=== PATIENT | female | born 1940 | race Caucasian/White ===

== ENCOUNTER 2022-12-21 09:56 | Emergency (ER) | payer MEDICARE, SELFPAY ==
--- NOTE | ~2022-12-21 | US_ITS ---
EXAMINATION: US ABDOMEN LIMITED CLINICAL INFORMATION: Abdominal pain and nausea. COMPARISON: None available. TECHNIQUE: Real-time imaging of the right upper quadrant abdominal viscera. FINDINGS: PANCREAS: Normal. LIVER: Slight increased echotexture but no focal mass. There is no intrahepatic biliary dilatation. GALLBLADDER: Multiple small mobile gallstones observed within the gallbladder but no gallbladder wall thickening or pericholecystic fluid. COMMON BILE DUCT: Normal in caliber measuring 0.6 cm in diameter. RIGHT KIDNEY: Normal. No hydronephrosis. No renal calculi or focal parenchymal lesions. The kidney measures 9.7 cm in maximum dimension. FREE FLUID: None. US/US abdomen limited IMPRESSION: Cholecystolithiasis with no biliary dilatation.
[2022-12-21 10:16] VITALS: BP 164/70; BP 170/90; PULSE 81; PULSE 83; RESP 16; TEMP 36.9; O2SAT 96; BMI 19.4
--- NOTE | 2022-12-21 10:23 | ED.GENADULT ---
HPI - General Adult General Chief complaint: Back Pain/Injury Stated complaint: N/V/D,LOW BACK PAIN,?UTI S/P SURG 3 WKS AGO Time Seen by Provider: 12/21/22 10:03 Source: patient, RN notes reviewed and old records reviewed Mode of arrival: ambulatory History of Present Illness HPI narrative: 82-year-old female with a past medical history L1 compression fracture s/p kyphoplasty 3 weeks ago at [facility], known L2 compression fracture (scheduled for additional kyphoplasty 12/26), presenting to the ED complaining of continued low back pain, nausea, vomiting, and diarrhea s/p taking Oxycodone for pain it yesterday. Patient states was scheduled for routine follow-up in the office yesterday, was complaining of continued pain thus prescribed Oxycodone, also had MRI on Monday due to pain which showed the new L2 compression fracture. Called office today and was instructed to come to ED for further evaluation. Patient/ daughter concern for dehydration. Denies fever, chills, abdominal pain, dysuria / hematuria, urinary incontinence/retention Onset (ago): day(s) Related Data Home Medications Medication Instructions Recorded Confirmed albuterol sulfate 90 mcg/actuation 2 puff inhalation QID PRN wheezing 12/21/22 12/21/22 aerosol inhaler (Ventolin HFA) atorvastatin 20 mg tablet 20 mg PO DAILY 12/21/22 12/21/22 fluticasone fur. 100 mcg-umeclid 1 ea inhalation DAILY 12/21/22 12/21/22 62.5 mcg-vilant 25 mcg inhalat.powder (Trelegy Ellipta) gabapentin 300 mg capsule 300 mg PO DAILY 12/21/22 12/21/22 losartan 100 mg tablet 100 mg PO DAILY 12/21/22 12/21/22 metoprolol succinate 100 mg 150 mg PO DAILY 12/21/22 12/21/22 tablet,extended release 24 hr multivitamin 1 tab PO DAILY 12/21/22 12/21/22 naproxen 500 mg tablet 500 mg PO BID 12/21/22 12/21/22 omeprazole 40 mg capsule,delayed 40 mg PO DAILY 12/21/22 12/21/22 release oxycodone 5 mg tablet 5 mg PO QID PRN Severe Pain (Scale 08/02/23 08/02/23 Score 7-10) polyethylene glycol 3350 17 17 g PO DAILY 12/21/22 12/21/22 gram/dose oral powder tizanidine 4 mg tablet 4 mg PO TID 12/21/22 12/21/22 Allergies Allergy/AdvReac Type Severity Reaction Status Date / Time No Known Allergies Allergy Verified 12/21/22 10:35 Review of Systems Review of Systems: Constitutional: No Fever, No Chills, No Fatigue, No Malaise ENT/Mouth: No Ear Pain, No sore throat, No Rhinorrhea, No Swallowing Difficulty Eyes: No Eye Pain, No Swelling, No Redness Cardiovascular: No Chest Pain, No SOB, No Edema, No Palpitations Respiratory: No Cough, No Sputum, No Dyspnea Gastrointestinal: + Nausea, +Vomiting, + Diarrhea, No Constipation, No Abdominal pain Genitourinary: No Dysuria, No Urinary Frequency, No Hematuria, No Urinary Incontinence/retention, No Flank Pain Musculoskeletal: + joint pain, No Myalgias, No Joint Swelling Skin: No Skin Lesions, No rash Neuro: No Weakness, No Numbness, No Paresthesias, No Headache Yes all other systems are reviewed and are negative Constitutional: Constitutional: Reports as per HPI Neurologic: Denies Sensory deficit (Neuro) [facility] Past Medical History Attestation statement: The following information was validated with the patient. Source: old records reviewed Social History Social History Alcohol intake: current Alcohol intake frequency: holidays/special occasions only Smoked in Last 30 Days: No Use of substances other than those prescribed or required for medical reasons: No Advance Directives: No Physical Exam ED Vital Signs: Vital Signs - 24 hr 12/21/22 10:16 12/21/22 15:19 12/21/22 15:41 Temperature 98.5 F Pulse Rate 81 81 96 Respiratory Rate 16 18 Blood Pressure 164/70 H 164/70 H 165/78 H Pulse Oximetry 96 96 93 Oxygen Delivery Method Room Air Room Air BMI result Body Mass Index 19.4 Const General: cooperative, healthy appearing and no acute distress Orientation/consciousness: patient oriented x3 Limitations: no limitations HENMT Head: Yes normal to inspection and Yes atraumatic Ears: hearing grossly normal bilaterally General nose exam: Normal external nose present Face and sinus: Yes normal facial exam Eyes General: appearance normal, both eyes and all related structures EOM: EOMs intact bilaterally Neck Neck: Yes normal visual inspection and Yes no meningeal signs Resp Effort & Inspection: normal respiratory effort and no respiratory distress Auscultation: clear to auscultation bilaterally Cardio Rate: regular rate Heart sounds: S1 normal heart sound present and S2 normal heart sound present GI Inspection: Yes normal to inspection Palpation (GI): Soft to palpation, nontender, no guarding and not rigid General: Yes no CVA tenderness Back/Spine/Pelvis Other: No midline cervical/thoracic/lumbar spinous tenderness/step-off or deformity. back pain not reproducible on exam. No appreciable surgical scar/ erythema or ecchymosis. Back: no CVA tenderness Skin Rashes: no rashes Wounds: no wounds Neuro Other: Strength intact throughout. No saddle anesthesia. Sensation intact to light touch. Neurovascular intact distally General: patient oriented x3, tone normal, no meningeal signs and no focal motor deficits Gait exam (Neuro): Normal gait present Motor exam (neuro): 5/5 motor strength present throughout Sensory Exam: No Sensory deficit (Neuro) Extrem General: Yes normal to inspection and Yes no pedal edema Course Course Course Narrative: -1125-- received records from [facility] [place] which confirm patient's kyphoplasty of L2 on 12/02. Patient had MRI of the lumbar spine on 12/19 which confirmed a new acute fracture of the L1 vertebral body. If has been managing with Tylenol/ naproxen at home without relief. Is scheduled to undergo kyphoplasty of L1 new fracture. Was prescribed oxycodone 5 mg, 20 tablets yesterday. -1205--- no leukocytosis. + Transaminitis with AST 124, ALT 160, alk-phos 981 ( no available priors to compare) > abdomen soft/ nontender, will obtain abdomen ultrasound, hepatitis panel/acetaminophen levels - lipase and acetaminophen negative, hepatitis panel pending US abdomen limited IMPRESSION: Cholecystolithiasis with no biliary dilatation. >1438-- on re-evaluation patient lying comfortably in stretcher, states pain is okay when still, however becomes severe with any movement. States cannot ambulate without assistance, unsafe discharge. Agreeable to PT/case management. does have surgery scheduled for Monday, likely will need rehab until procedure. Physician observation initiated - physical therapy evaluated patient and recommended acute rehab. -1630-- ED care transferred to [facility] pending Case Management placement Medications Administered Discontinued Medications Generic Name Dose Route Start Last Admin Trade Name Emperatriz PRN Reason Stop Dose Admin Sodium Chloride 1,000 mls @ 999 mls/hr 12/21/22 12:15 12/21/22 13:15 Ns IV 12/21/22 13:15 999 mls/hr .Q1H1M AP Administration Morphine Sulfate 15 mg 12/21/22 10:35 12/21/22 11:03 Morphine Sulfate Immed Release 15 Mg Tablet PO 12/21/22 10:36 15 mg ONCE ONE Administration Ondansetron HCl 4 mg 12/21/22 10:35 12/21/22 11:03 Ondansetron Odt 4 Mg Tab.Rapdis TRANSLINGU 12/21/22 10:36 4 mg ONCE ONE Administration Tramadol HCl 50 mg 12/21/22 12:10 12/21/22 13:15 Tramadol Hcl 50 Mg Tablet PO 12/21/22 12:11 50 mg ONCE ONE Administration Medical Decision Making Medical Decision Making [facility] Narrative: 82-year-old female with a past medical history L1 compression fracture s/p kyphoplasty 3 weeks ago at [facility], known L2 compression fracture (scheduled for additional kyphoplasty 12/26), presenting to the ED complaining of continued low back pain, nausea, vomiting, and diarrhea s/p taking Oxycodone for pain it yesterday. On exam vital signs stable, NAD, nontoxic appearing, no midline spinous tenderness or red flag symptoms, back pain not reproducible, no saddle anesthesia. Concern for adverse medication reaction vs continued pain due to previous kyphoplasty/ known L2 compression fracture. Low suspicion for new fracture, cauda equina/cord compression, or epidural abscess. Unlikely dissection. Rule out UTI. Plan: Labs, UA, request records from outpatient facility, pain control Please refer to course for remaining clinical decision making, interpretation of labs/imaging results, and discussions with consultants and/or family members. Differential Diagnosis Differential Diagnoses: The differential diagnosis associated with the presentation includes As above Admission/Observation Consideration of admission/observation: Escalation of care including admission/observation considered Lab Data [facility] Lab Attestation statement: I reviewed the patient's lab results. 12/21/22 10:55 12/21/22 10:55 Labs: Lab Results 12/21/22 12/21/2223 Range/Units 10:55 10:55 11:19 WBC 8.6 (4.8-10.8) X10*3/uL RBC 3.52 L (4.20-5.50) X10*6/uL Hgb 11.4 L (12.0-16.0) g/dl Hct 34.8 L (37.0-47.0) % MCV 98.9 H (80.0-98.0) fL MCH 32.4 (27.0-33.0) pg MCHC 32.8 (31.0-35.0) g/dl RDW 13.5 (11.0-16.0) % Plt Count 349 (160-400) X10*3/uL MPV 9.1 L (9.4-12.3) fL Immature Gran % (Auto) 0.5 H (0.0-0.4) % Neut % (Auto) 78.9 H (45-73) % Lymph % (Auto) 9.2 L (20-40) % [place]ancock % (Auto) 9.3 (2-11) % Eos % (Auto) 1.6 (0-4) % Baso % (Auto) 0.5 (0-2) % Lymph # (Auto) 0.8 L (1.2-4.9) X10*3/uL Hancock # (Auto) 0.8 (0.1-1.2) X10*3/uL Eos # (Auto) 0.1 (0.0-0.4) X10*3/uL Baso # (Auto) 0.0 (0.0-0.2) X10*3/uL Abs Immat Gran (auto) 0.04 H (0.00-0.03) X10*3/uL Absolute Neuts (auto) 6.8 (2.0-8.3) x10*3/uL Absolute Nucleated RBC 0.000 (0.0-0.012) X10*3/uL Nucleated RBC % (auto) 0.0 (0.0-0.2) /100WBC Sodium 135 (135-145) mmol/L Potassium 3.8 (3.3-5.1) mmol/L Chloride 101 (96-108) mmol/L Carbon Dioxide 23 (22-29) mmol/L Anion Gap 15 (12-20) BUN 5 L (9-16) mg/dL Creatinine 0.58 (0.5-1.4) mg/dL Estim Creat Clear Calc 51.3 Estimated GFR > 60 Random Glucose 103 (60-115) mg/dL Calcium 9.6 (8.4-10.2) mg/dL Magnesium 2.1 (1.6-2.6) mg/dL Total Bilirubin 0.9 (0.0-1.0) mg/dL Direct Bilirubin 0.5 (0.0-0.5) mg/dL AST 124 H (5-31) U/L ALT 160 H (0-31) U/L Alkaline Phosphatase 981 H (39-117) U/L Total Protein 7.2 (6.5-8.0) g/dL Albumin 3.7 (3.5-5.0) g/dL Lipase (8-78) U/L Urine Color Yellow Urine Appearance Clear Urine pH 7.0 (5.0-9.0) Ur Specific [place] 1.010 (1.005-1.025) Urine Protein Negative (Neg-Trace) mg/dL Urine Glucose (UA) Negative (Negative) mg/dL Urine Ketones Trace (Negative) mg/dL Urine Blood Negative (Negative) Urine Nitrite Negative (Negative) Ur Leukocyte Esterase Negative (Negative) Acetaminophen (<30) mcg/mL COVID-19 (ANTIONETTE) (Negative) COVID-19 Clin Com 12/21/22 12/21/22 12/21/22 Range/Units 12:44 12:44 15:19 WBC (4.8-10.8) X10*3/uL RBC (4.20-5.50) X10*6/uL Hgb (12.0-16.0) g/dl Hct (37.0-47.0) % MCV (80.0-98.0) fL MCH (27.0-33.0) pg MCHC (31.0-35.0) g/dl RDW (11.0-16.0) % Plt Count (160-400) X10*3/uL MPV (9.4-12.3) fL Immature Gran % (Auto) (0.0-0.4) % Neut % (Auto) (45-73) % Lymph % (Auto) (20-40) % Hancock % (Auto) (2-11) % Eos % (Auto) (0-4) % Baso % (Auto) (0-2) % Lymph # (Auto) (1.2-4.9) X10*3/uL [place] # (Auto) (0.1-1.2) X10*3/uL Eos # (Auto) (0.0-0.4) X10*3/uL Baso # (Auto) (0.0-0.2) X10*3/uL Abs Immat Gran (auto) (0.00-0.03) X10*3/uL Absolute Neuts (auto) (2.0-8.3) x10*3/uL Absolute Nucleated RBC (0.0-0.012) X10*3/uL Nucleated RBC % (auto) (0.0-0.2) /100WBC Sodium (135-145) mmol/L Potassium (3.3-5.1) mmol/L Chloride (96-108) mmol/L Carbon Dioxide (22-29) mmol/L Anion Gap (12-20) BUN (9-16) mg/dL Creatinine (0.5-1.4) mg/dL Estim Creat Clear Calc Estimated GFR Random Glucose (60-115) mg/dL Calcium (8.4-10.2) mg/dL Magnesium (1.6-2.6) mg/dL Total Bilirubin (0.0-1.0) mg/dL Direct Bilirubin (0.0-0.5) mg/dL AST (5-31) U/L ALT (0-31) U/L Alkaline Phosphatase (39-117) U/L Total Protein (6.5-8.0) g/dL Albumin (3.5-5.0) g/dL Lipase 13 (8-78) U/L Urine Color Urine Appearance Urine pH (5.0-9.0) Ur Specific [place] (1.005-1.025) Urine Protein (Neg-Trace) mg/dL Urine Glucose (UA) (Negative) mg/dL Urine Ketones (Negative) mg/dL Urine Blood (Negative) Urine Nitrite (Negative) Ur Leukocyte Esterase (Negative) Acetaminophen < 17 (<30) mcg/mL COVID-19 (ANTIONETTE) Negative (Negative) COVID-19 Clin Com See Note Radiology Impression Discussion of test interpretation with radiology: I have reviewed the radiologist's reading. Independent Historian Clinical information obtained from an independent historian. History obtained from or confirmed by: Other (daughter) External Record Review External record reviewed: Inpatient record, Office record, Outpatient record, Prior outpatient labs, Prior outpatient radiology, Primary care record and Outside ED record Tests considered The following testing was considered but not selected: repeat imaging although not needed at this time as MRI was obtained on Monday Prescription Management I considered prescription management with: Pain Medication Discharge Plan Discharge Clinical Impression: Compression fracture of L1 vertebra, Transaminitis, Cholelithiasis Patient Disposition: Still a Patient Prescriptions: No Action multivitamin Tablet 1 tab PO DAILY atorvastatin 20 mg tablet 20 mg PO DAILY tizanidine 4 mg tablet 4 mg PO TID metoprolol succinate 100 mg tablet extended release 24 hr 150 mg PO DAILY omeprazole 40 mg capsule,delayed release(DR/EC) 40 mg PO DAILY gabapentin 300 mg capsule 300 mg PO DAILY polyethylene glycol 3350 17 gram/dose Powder 17 g PO DAILY albuterol sulfate [Ventolin HFA] 90 mcg/actuation HFA aerosol inhaler 2 puff INHALATION QID PRN (Reason: wheezing) losartan 100 mg tablet 100 mg PO DAILY naproxen 500 mg tablet 500 mg PO BID oxycodone 5 mg tablet 5 mg PO QID PRN (Reason: Severe Pain (Scale Score 7-10)) Trelegy Ellipta 100-62.5-25 mcg blister with device 1 ea inhalation DAILY
[2022-12-21 10:58] LABS: MANUAL DIFF FLAG NO
[2022-12-21] MEDS: Ondansetron ODT 4 MG TAB.RAPDIS TRANSLINGU ×2 (11:03→18:22)
[2022-12-21] MEDS: Morphine Sulfate Immed Release 15 MG TABLET PO (11:03)
[2022-12-21 11:10] LABS: Basophils Percent Auto 0.5 % (0-2); Eosinophils Absolute Auto 0.1 X10*3/uL (0.0-0.4); Eosinophils Percent Auto 1.6 % (0-4); Hematocrit 34.8 % (37.0-47.0); Hemoglobin 11.4 g/dl (12.0-16.0); Imm Gran Abs Auto 0.04 X10*3/uL (0.00-0.03); Imm Gran Pct Auto 0.5 % (0.0-0.4); Lymphocytes Absolute Auto 0.8 X10*3/uL (1.2-4.9); Lymphocytes Percent Auto 9.2 % (20-40); Mean Corpuscular HGB Conc 32.8 g/dl (31.0-35.0); Mean Corpuscular Hemoglobin 32.4 pg (27.0-33.0); Mean Corpuscular Volume 98.9 fL (80.0-98.0); Mean Platelet Volume 9.1 fL (9.4-12.3); Monocytes Absolute Auto 0.8 X10*3/uL (0.1-1.2); Monocytes Percent Auto 9.3 % (2-11); Neutrophils Absolute Auto 6.8 x10*3/uL (2.0-8.3); Neutrophils Percent Auto 78.9 % (45-73); Platelet Count 349 X10*3/uL (160-400); Red Blood Count 3.52 X10*6/uL (4.20-5.50); Red Cell Distribution Width 13.5 % (11.0-16.0); White Blood Count 8.6 X10*3/uL (4.8-10.8)
[2022-12-21 11:20] LABS: Alanine Aminotransferase 160 U/L (0-31); Albumin Level 3.7 g/dL (3.5-5.0); Alkaline Phosphatase 981 U/L (39-117); Anion Gap 15 (12-20); Aspartate Amino Transferase 124 U/L (5-31); Bilirubin Direct 0.5 mg/dL (0.0-0.5); Bilirubin Total 0.9 mg/dL (0.0-1.0); Blood Urea Nitrogen 5 mg/dL (9-16); Calcium 9.6 mg/dL (8.4-10.2); Carbon Dioxide 23 mmol/L (22-29); Chloride 101 mmol/L (96-108); Creatinine Clr Calc Pharmacy 51.3; Estimated Glomerular Filt Rate > 60; Glucose Random 103 mg/dL (60-115); Magnesium 2.1 mg/dL (1.6-2.6); Potassium 3.8 mmol/L (3.3-5.1); Sodium 135 mmol/L (135-145); Total Protein 7.2 g/dL (6.5-8.0)
[2022-12-21 11:30] LABS: Appearance Urine Clear; Color Urine Yellow; Glucose Urine UA Negative (Negative); Leukocyte Esterase Urine Negative (Negative); Nitrite Urine Negative (Negative); Urine Blood Negative (Negative); Urine Ketones Trace mg/dL (Negative); Urine Protein Negative (Neg-Trace)
--- NOTE | 2022-12-21 12:16 | PHA.MEDREC ---
Pharmacy Consult ? Medication Reconciliation Pharmacy has completed the medication reconciliation. List from [facility]
[2022-12-21 13:05] LABS: Lipase 13 U/L (8-78)
[2022-12-21 13:09] LABS: Acetaminophen LAB < 17 mcg/mL (<30)
[2022-12-21] MEDS: 0.9 % Sodium Chloride 1,000 ML 999 ML IV (13:15)
[2022-12-21] MEDS: traMADoL HCL 50 MG TABLET PO (13:15)
[2022-12-21 15:19] VITALS: BP 164/70; PULSE 81; O2SAT 96
[2022-12-21 15:41] VITALS: BP 165/78; PULSE 96; RESP 18; O2SAT 93
[2022-12-21 15:51] LABS: COVID-19 Test Negative (Negative); IDNOW Serial# BCCEAD1C
[2022-12-21] MEDS: TiZANidine HCL 4 MG TABLET PO ×2 (18:00→21:13)
[2022-12-21] MEDS: Atorvastatin Calcium 20 MG TABLET PO (18:01)
[2022-12-21] MEDS: Metoprolol Succinate ER 50 MG TAB.ER.24H 150 MG PO (18:01)
[2022-12-21] MEDS: Omeprazole 40 MG CAPSULE.DR PO (18:01)
[2022-12-21] MEDS: Losartan Potassium 50 MG TABLET 100 MG PO (18:03)
[2022-12-21] MEDS: Multivitamin TABLET 1 TAB PO (18:03)
[2022-12-21 18:05] VITALS: BP 181/84; PULSE 89; RESP 18; O2SAT 94
[2022-12-21] MEDS: polyethylene glycoL 3350 17 GM POWD.PACK PO (18:05)
[2022-12-21] MEDS: Gabapentin 300 MG CAPSULE PO (18:21)
--- NOTE | 2022-12-21 18:33 | MHC.EDTECH ---
400cc emptied from [facility]
--- NOTE | 2022-12-21 21:10 | MHC.CM.ED ---
Addendum entered by Ladi Kelley 12/21/22 21:56: Pt is very independent. A&Ox4. Was driving until recent back surgery. [place]. Very good candidate for acute rehab. Highly motivated to get back to her life. Original Note: CM met with patient and daughters. Medical work up complete. No admission. Pt has Kyphoplasty 3 weeks ago for compression fx of L1 at [facility] [place]. Has had worsening pain and was noted to have new compression fx of L2. Pt is scheduled for kyphoplasty on 12/26 at 11:[address] as an outpatient. Pt lives alone in a duplex, with her son living next door. She has 2 daughters who are able to help her. She has been unable to drive since her initial fall in September due to back pain. She uses a cane & life alert. Pfizer x3. Pt is Covid negative. Has COPY TECHNICIAN through [facility]. HCP#1/daughter Linda Hutchison ([phone]) and HCP #2/daughter Dinorah Goodwin ([phone]). PT recommends acute rehab. Pt and family agreeable. Referrals made to acute facilities. D/C plan: acute rehab. Will need transport. CM following for discharge planning.
[2022-12-21] MEDS: NaPROXEN 500 MG TABLET PO (21:13)
[2022-12-22] MEDS: Omeprazole 40 MG CAPSULE.DR PO (05:19)
--- NOTE | 2022-12-22 05:36 | PC.NURSE ---
patient slept throughout the night with no distress patient vitals are stable patient received all medications with no issues
[2022-12-22 05:46] LABS: HBS Num1 4.18 mIU/mL (0-7.99); HBc Num1 0.12 S/CO (0.00-0.79); Hepatitis B Core Antibody Nonreactive (Nonreactive); Hepatitis B Surface Antigen Negative (Negative); ~HepC Num1 0.08 S/CO (0.00-0.79); ~Hepatitis A Antibody IgM Nonreactive (Nonreactive); ~Hepatitis B Surface Antibody NONREACTIVE (Nonreactive); ~Hepatitis C Antibody Nonreactive (Nonreactive)
[2022-12-22 06:00] VITALS: BP 164/76; PULSE 78; RESP 16; TEMP 36; O2SAT 97
[2022-12-22] MEDS: Gabapentin 300 MG CAPSULE PO (07:44)
[2022-12-22] MEDS: Metoprolol Succinate ER 50 MG TAB.ER.24H 150 MG PO (07:44)
[2022-12-22] MEDS: Multivitamin TABLET 1 TAB PO (07:44)
[2022-12-22] MEDS: TiZANidine HCL 4 MG TABLET PO (07:44)
[2022-12-22] MEDS: Losartan Potassium 50 MG TABLET 100 MG PO (07:45)
[2022-12-22] MEDS: NaPROXEN 500 MG TABLET PO (07:45)
[2022-12-22] MEDS: polyethylene glycoL 3350 17 GM POWD.PACK PO (07:45)
[2022-12-22] MEDS: Atorvastatin Calcium 20 MG TABLET PO (07:45)
[2022-12-22 08:00] VITALS: BP 103/55; PULSE 75; RESP 16; TEMP 36.4; O2SAT 97
[2022-12-22 10:00] VITALS: BP 140/60; PULSE 63; RESP 13; TEMP 36.3; O2SAT 98
--- NOTE | 2022-12-22 13:35 | MHC.CM.ED ---
Patient remains in ER overflow. Patient has [employer] Medicare advantage plan that is not contracted with the 3 local acute rehabs. Referral broadcasted in [facility] within 25 miles. At this time, [facility] to offer a bed. Patient agreeable to [facility]. N has been asked to go for ins auth. Patient's daughter, Raysa is at bedside and is aware. Continue to monitor for d/c needs.
--- NOTE | 2022-12-22 13:46 | MHC.CM.ED ---
Patient remains in ER overflow. None of the 3 local acute rehab facilities are able to offer a bed at this time because patient has surgery scheduled for 12/26. Spoke with patient's daughter, Linda via telephone. This information was passed on to Linda. Patient can privately pay for STR or go home with VNA and family support. Linda will be at [facility] around 130pm to transport patient home. Linda agreeable to referral to [facility]. Referral made via [facility]. [facility] will contact patient to arrange visit. Patient, Meeta WELSH and Brenda NOVAK aware. Continue to monitor for d/c needs.
== END 2022-12-22 14:15 | disposition home or self-care (01) ==
PROVIDERS: Physician Assistant; Emergency Provider Emergency Medicine; PCP Internal Medicine
DX: M48.56XA Collapsed vertebra, not elsewhere classified, lumbar region, initial encounter for fracture (principal); R74.01 Elevation of levels of liver transaminase levels; K80.20 Calculus of gallbladder without cholecystitis without obstruction; R26.2 Difficulty in walking, not elsewhere classified; R11.2 Nausea with vomiting, unspecified; Z20.822 Contact with and (suspected) exposure to COVID-19; Z20.828 Contact with and (suspected) exposure to other viral communicable diseases; Z79.899 Other long term (current) drug therapy
CPT/HCPCS: 36415; 76705; 80048; 80076; 80143; 81003; 83690; 83735; 85025; 86704; 86706; 86709; 86803; 87340; 87635; 96360; 96361; 97162; 99285